=== PATIENT | male | born 1945 | race Caucasian/White ===

== ENCOUNTER → 2024-06-14 12:08 | Outpatient (REF) | payer MEDICARE, OTHER, SELFPAY | LOC: SDSPAT 12:08 | PROVIDERS: ATTENDING PHYSICIAN Internal Medicine Cardiovascular Disease; FAMILY PHYSICIAN Student in an Organized Health Care Education/Training Program; OTHER PHYSICIAN Internal Medicine Cardiovascular Disease | DX: I35.0 Nonrheumatic aortic (valve) stenosis (principal) | CPT/HCPCS: 93005 ==

== ENCOUNTER 2024-06-26 07:16 | Day surgery (SDC) | payer MEDICARE, OTHER, SELFPAY ==
[2024-06-14 12:19] VITALS: BMI 25.4
[2024-06-26] VITALS (15 sets, daily range): BP systolic 124–188; BP diastolic 73–102; BMI 24.3
[2024-06-26] MEDS: LOW STRENGTH ASPIRIN 81 MG PO (08:09)
[2024-06-26] MEDS: NSS 237 ML IV (08:10)
[2024-06-26] MEDS: NSS 1000 IV (09:40)
--- NOTE | 2024-06-26 13:37 | ITS.CL.CATH ---
[facility] - Catheterization
Cardiac Catheterization
Procedure Report:
CARDIAC CATHETERIZATION REPORT
Date of Procedure: 06/26/2024
Referring: Dennis Stanford D.O.
Indication: Severe aortic valve stenosis.
PROCEDURE:
1. Right heart catheterization.
2. Coronary angiography.
3. Abdominal aortography with peripheral angiography.
A total of 7 minutes of procedural/moderate sedation was utilized. An independent medical bill processor was present to assist with and help manage the patient's level of consciousness and physiologic status.
ACCESS:
1. 6 [place] right radial artery using a modified Seldinger technique.
2. 5 [place] right antecubital vein using a previously placed IV.
CATHETERS:
1. 5 [place] balloon with.
2. 5 [place] JL 3.5.
3. 5 [place] JR4.
4. 6 [place] 125 cm pigtail catheter.
HEMODYNAMIC DATA
Weight (kg): 80.4
AO (s/d/x, mmHg): 171/86/118
LV (s/x, mmHg): Not obtained.
PCWP (a/v/x, mmHg):
PA (s/d/x, mmHg):
RV (s/x, mmHg): 8
RA (a/v/x, mmHg):
SVC SvO2 (%): 74.7
IVC SvO2 (%): Not obtained.
RA SvO2 (%): Not obtained.
RV SvO2 (%): Not obtained.
PA SvO2 (%): 76.2
SaO2 (%): 97.5
Hbg (g/dL): 15.1
MESFIN
CO (L/min): 4.93
CI (L/min/m2): 2.48
Thermodilution
CO (L/min): Not performed.
CI (L/min/m2): Not performed.
TPG (mmHg): 5
PVR (Beaulieu Units): 1.01
SVR (dynes*seconds*cm^-5): 1785
AVO2 Diff (Volume %): 4.37
AV gradient (x, mmHg): Not obtained.
AV area (cm2): Not obtained.
MV gradient (x, mmHg): Not obtained.
MV area (cm2): Not obtained.
LEFT VENTRICULOGRAPHY: Not performed.
AORTOGRAPHY: Abdominal aortography performed in the AP projection. This demonstrates a patent aorta with mild tortuosity. Atherosclerotic irregularities are observed within the distal aorta, bilateral common iliac, external iliac and common
femoral vessels without obvious occlusion. There may be more significant disease in the left SFA that is not completely visualized on this exam.
CORONARY ANGIOGRAPHY
Dominance: Right.
Left Main: Normal size, bifurcating vessel. There is no coronary artery disease.
LAD: Normal size vessel giving rise to 2 diagonals. D1 is fairly small. The second diagonal is much larger supplying a significant amount of the anterolateral wall. There is a 70% lesion in its proximal margin.
Ramus: Congenitally absent.
Circumflex: Large size, nondominant vessel giving rise to 2 obtuse marginals. OM1 is a large vessel which subsequently bifurcates into a small upper and larger lower branch. There are minor luminal irregularities. There are minor luminal
irregularities in OM 2.
RCA: Normal size, dominant vessel. The mid and distal vessel are severely tortuous. There are minor luminal irregularities scattered throughout the vessel.
INTERVENTIONS
None.
Closure Device: Vascular band for the right radial artery, manual pressure for the right antecubital vein.
Radiation dose (mGy): 317.74
DAP (cm2.Gy): 28.5052
Fluoroscopy time (minutes): 6.0
CONCLUSIONS:
1. Right dominant circulation with luminal irregularities in the severely tortuous RCA, luminal irregularities in the circumflex system and a 70% lesion in the proximal margin of the second diagonal.
2. Mildly elevated filling pressures (PCWP = 14 mmHg at 80.4 kg).
3. Severe aortic valve stenosis by echocardiography.
4. Preserved cardiac index (2.48 L/min/m�).
5. Predominantly left leg claudication.
RECOMMENDATIONS:
1. Expectant management after cardiac catheterization via right radial/antecubital approach.
2. Limited weight bearing on the right wrist for one week.
3. TAVR workup. The patient is relatively asymptomatic though there may be benefit to asymptomatic transcatheter aortic valve replacement to avoid downstream complication. Q6 month echos and yearly stress echo.
4. His claudication is his primary issue. 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
5. OMT/GDMT as hemodynamics will tolerate.
6. Aggressive primary prevention with high-dose, high potency statin. Start atorvastatin 40 mg daily. Goal LDL <55.
Copy to: Dennis Stanford D.O., Parvez Draper M.D., Dennis Gibbs DShonda.
Isra Greene DO, FACC, FACP
--- NOTE | 2024-06-26 15:18 | W.PN.UPDATE ---
Update Note
Progress Note Update
CT surgery consult appointment given to patient as well as asked him to see his dentist (Jean Carlos Paz) for clearance prior to having his valve procedure. Allowed for and answered questions.
== END 2024-06-26 12:30 | disposition home or self-care (01) ==
LOC: CATH 07:16
PROVIDERS: ATTENDING PHYSICIAN Internal Medicine Cardiovascular Disease; FAMILY PHYSICIAN Student in an Organized Health Care Education/Training Program; OTHER PHYSICIAN Internal Medicine Cardiovascular Disease
DX: I35.0 Nonrheumatic aortic (valve) stenosis (principal); I70.0 Atherosclerosis of aorta; Z79.82 Long term (current) use of aspirin; Z79.890 Hormone replacement therapy; Z79.899 Other long term (current) drug therapy; I10 Essential (primary) hypertension; I45.10 Unspecified right bundle-branch block
CPT/HCPCS: G0278; 93456; 93460; C1894; Q9967

== ENCOUNTER → 2024-10-17 10:53 | Outpatient (REF) | payer MEDICARE, OTHER, SELFPAY | LOC: RAD 10:53 | PROVIDERS: FAMILY PHYSICIAN Student in an Organized Health Care Education/Training Program | DX: M79.661 Pain in right lower leg (principal); M79.662 Pain in left lower leg | CPT/HCPCS: 93970 ==